=== PATIENT | male | born 1980 | race Asian ===

== ENCOUNTER 2020-09-30 23:20 | Emergency (ER) | payer BC ==
[~2020-09-30] VITALS: Ht 175.3 cm; Wt 59.1 kg
[2020-10-01] MEDS ORDERED: BACITRACIN 0.9 GM PACKET OINTMENT TP ONE (02:15)
[2020-10-01] MEDS ORDERED: PERTUSS(ACELL),DIPH,TET VAC/PF 0.5 ML VIAL IM ONE (02:15)
[2020-10-01 02:30] VITALS: BP 127/76
== END 2020-10-01 02:30 | disposition home or self-care (01) ==
LOC: EMS 23:25
DX: S61.112A Laceration without foreign body of left thumb with damage to nail, initial encounter (principal); Z88.0 Allergy status to penicillin; W26.0XXA Contact with knife, initial encounter; Y93.89 Activity, other specified; Y92.89 Other specified places as the place of occurrence of the external cause; Y99.8 Other external cause status
CPT/HCPCS: 90471; 90715